=== PATIENT | male | born 1960 | race Caucasian/White ===

== ENCOUNTER 2023-12-19 03:17 | Emergency (ER) | payer OTHER, SELFPAY ==
[2023-12-19 03:20] VITALS: BP 160/116; PULSE 84; RESP 20; TEMP 36.7; O2SAT 97; BMI 31.2
--- NOTE | 2023-12-19 03:22 | CRLHL7_ITS ---
For Patients: As a result of the Century Cures Act, medical imaging exams and procedure reports are released immediately into your electronic medical record. You may view this report before your referring provider. If you have questions, please contact your health care provider. INDICATION: New onset seizures TECHNIQUE: CT Head without i.v. contrast. Coronal and sagittal reformats were obtained. COMPARISON: None FINDINGS: CSF space: Unremarkable for age. Brain: No evidence of mass, acute infarction or hemorrhage is seen. No mass-effect or midline shift is seen. Mild diffuse cortical atrophy is noted. The brain parenchyma is otherwise normal in appearance with preservation of the thompson-white matter junction. Calvarium: Mild mucosal thickening is seen in the right maxillary sinus and ethmoid air cells. The mastoid air cells are clear. The visualized orbits are grossly unremarkable. The calvarium is unremarkable in appearance with no fractures identified. IMPRESSION: 1. No evidence of acute infarction, intracranial hemorrhage, or mass-effect seen. Dictated by Jared Santoro MD @ 12/19/2023 3:44:42 AM Please note that all CT scans at this facility use dose modulation, iterative reconstruction, and/or weight-based dosing when appropriate to reduce radiation dose to as low as reasonably achievable. Dictated by: Jared Santoro MD @ 12/19/2023 03:47:13 (Electronically Signed)
[2023-12-19 03:38] LABS: Appearance Urine Clear (Clear); Bilirubin Urine Negative (Negative); Blood Urine Negative (Negative); Color Urine Yellow (Yellow); Glucose Urine Negative (Negative); Ketones Urine Negative (Negative); Leukocyte Esterase Urine Negative (Negative); Nitrite Urine Negative (Negative); Protein Urine 1+ (Negative); Specific Gravity Urine 1.025 (1.000-1.030); Urobilinogen Urine 0.2 (0.2-1.0)
[2023-12-19 03:47] LABS: Amphetamine Screen Urine Negative (Negative); Barbiturate Screen Urine Negative (Negative); Benzodiazepines Screen Urine Negative (Negative); Cannabinoid Screen Urine Negative (Negative); Cocaine Screen Urine Negative (Negative); Methadone Screen Urine Negative (Negative); Methamphetamines Screen Urine Negative (Negative); Opiate Screen Urine Negative (Negative); Oxycodone Screen Urine Negative (Negative); Phencyclidine Screen Urine Negative (Negative); Tricyclic Antidepressant Urine Negative (Negative)
[2023-12-19 03:47] LABS: Lactate* 1.7 mmol/L (0.5-1.9)
[2023-12-19 03:50] LABS: Basophils Absolute Auto 0.02 K/uL (0.00-0.30); Basophils Percent Auto 0.4 % (0.0-3.0); Eosinophils Percent Auto 2.1 % (0.0-7.0); Hematocrit 43.3 % (37.0-53.0); Hemoglobin* 14.9 gm/dL (13.5-17.5); Immature Granulocytes Abs Auto 0.01 K/uL (0.00-0.30); Immature Granulocytes Pct Auto 0.2 %; Lymphocytes Percent Auto 18.5 % (20-44); Mean Corpuscular HGB Conc 34 gm/dL (32-36); Mean Corpuscular Hemoglobin 30 pg (26-34); Mean Corpuscular Volume 86 fL (80-100); Monocytes Percent Auto 6.9 % (0.0-11.0); Neutrophils Absolute Auto 3.41 K/uL (1.7-7.0); Neutrophils Percent Auto 71.9 % (42.0-72.0); Platelet Count* 230 K/uL (140-440); RDW Coefficient of Variation % 12.8 % (11.5-15.5); Red Blood Count 5.04 m/uL (4.30-5.90); White Blood Count* 4.75 K/uL (4.50-11.00)
[2023-12-19 03:51] LABS: Slide Review Reflex No
--- NOTE | 2023-12-19 03:55 | ED_ITS ---
HPI - General Adult General Chief complaint: Seizure Stated complaint: seizure Time Seen by Provider: 12/19/23 03:22 Source: patient, family and EMS Mode of arrival: EMS History of Present Illness HPI narrative: 63-year-old male presents to the emergency department via [facility]. Patient [facility] I do not have any access to those records. He requested that EMS bring him to our facility, rationale is unclear. He has never been a patient of our facility. He reports that he did not want to be transferred to [place]. His called 911 when she was awoken by him having what sounds like a tonic clonic seizure. He does not recall the event admits that he has some amnesia for most of the night. He denies prior history of seizure. No recent head injury. He does not take an ticoagulants. No recent fever, trauma or injury. He does admit to daily drinking of alcohol, typically 1 beer after work. When I asked him how long it will take him to get through a case of beer, he says about a week and a half. Tells me that he used to drink more. He quit smoking 20 years ago. He does not have a family history of seizures or strokes. He reports he has a history of hypertension, takes a prescription medication, does not remember what it is. Does not have electronic access to that information. Denies recent illness, pertinent travel or other systemic symptoms. He is noting a little bit of bilateral tingling of each bahai but no other neurological changes. He reports that he was seen in an emergency department 5-6 years ago, unclear which 1 certainly was not hours. He reports that he had a spell at work where he felt lightheaded but did not pass out. I do not know what workup was done, he does not know if he was given a diagnosis. Again, no records. No additional information from EMS. His arrives as I complete my exam. He states that his past medical history is only notable for hypertension, denies any other long-term medical problems. He denies any prior surgeries. Family history negative as above. Unknown blood pressure medication is his only home med. Denies allergies. Nonsmoker. Regular alcohol drinker. Denies history of alcohol withdrawal symptoms. Related Data Previous Rx's ?Medication ?Instructions ?Recorded levetiracetam 500 mg tablet 500 mg PO BID #180 tabs 12/19/23 (Keppra) Allergies Allergy/AdvReac Type Severity Reaction Status Date / Time No Known Drug Allergies Allergy Verified 12/19/23 03:23 [facility] Medical History (Updated 12/19/23 @ 04:49 by Stefania Dang MD) Hypertension ?I10 - Essential (primary) hypertension (ICD-10) Exam Const: Vital Signs, click to edit/add: Vital Signs - 24 hr 12/19/23 03:20 Temperature 98.0 F Pulse Rate [Right Pulse Oximeter] 84 Respiratory Rate 20 Blood Pressure [Ri ght Upper Arm] 160/116 H Pulse Oximetry 97 Oxygen Delivery Me thod Room Air Documenting provider has reviewed patient's vital signs: yes Common normals: oriented x3 and alert Other: Cooperative and friendly. Amnesia regarding events of the evening. Oriented to person, place and situation. Can not answer complex questions like reversed phone number, spouse date, etc. HENMT: Common normals: normocephalic, head/scalp atraumatic, hearing grossly normal bilaterally, TM's normal bilaterally and moist oral mucous membranes Head and scalp: normocephalic and atraumatic Face and sinus: normal facial exam Tympanic membrane: TM's normal bilaterally Throat: posterior oropharynx normal Other: Biting to the tip of the tongue, no active bleeding. Eye: Common normals: PERRL, EOMs intact bilaterally and conjunctivae normal General eye: normal appearance of both eyes Conjunctiva: conjunctiva(e) normal Pupil: PERRL Neck & C-Spine: Common normals: full ROM and no lymphadenopathy Chest: Common normals: inspection of chest normal Resp: Common normals: normal respiratory effort and clear to auscultation bilaterally Effort & inspection: able to speak in complete sentences Auscultation: clear to auscultation bilaterally Cardio: Common normals: regular rate, regular rhythm, S1 normal heart sound, S2 normal heart sound and no murmurs Rate: regular rate Rhythm: regular rhythm Heart sounds: S1 normal and S2 normal GI: Common normals: Normal to inspection, nondistended, normoactive bowel sounds present, soft to palpation, non-tender, no hepatosplenomegaly and no masses Palpation: soft and no hepatosplenomegaly Other: Obese. Difficult to feel edges of organs. Extremity: Common normals: normal to inspection, full ROM and normal capillary refill Neuro: Common normals: oriented x3, CN's II-XII intact bilaterally, moves all extremities, no focal motor deficits and no sensory deficits noted Sensorium/orientation: alert Speech: speech normal Motor exam: strength 5/5 throughout, no tremor noted and no movement abnormalities noted Psych: Appearance: grossly normal Attitude: engaged Activity/motor behavior: appropriate eye contact Mood and affect: euthymic mood Insight: fair Judgement: judgment good Skin: Common normals: no rashes or lesions noted General skin exam: no rashes or lesions noted Course Course ED Course: 63-year-old male regular alcohol user with history of hypertension presenting with new onset seizure disorder. History is suspicious for a tonic clonic seizure. Will obtain head CT, basic labs, alcohol level. Seizure precautions. Will plan to give 1 g of Keppra. Await consult and findings. Reevaluation(s) Time of Reevaluation #1: 04:49 Reevaluation #1: Patient observed, no further signs of seizure activity. He is given 1 g of Keppra IV. We discussed that he needs an MRI of his brain. Offered observation admission here in our hospital to facilitate this. We still do not have neurology services and he would need to follow up with his primary care team to coordinate a neurology referral as well. He is preferring to have the MRI and the neurology referral coordinated by his primary care provider. I think this is reasonable since his head CT was normal. He will start on Keppra 500 b.i.d. in the interim, next dose is Monday. Alarm symptoms reviewed. No driving until cleared by Neurology. Written instructions provided. All questions answered. Vital Signs Vital signs: Initial Vital Signs Temperature 98.0 F 12/19/23 03:20 Temperature Source Temporal Artery Scan 12/19/23 03:20 Pulse Rate 84 12/19/23 03:20 Pulse Rhythm Regular 12/19/23 03:20 Pulse Strength 3+ Normal 12/19/23 03:20 Respiratory Rate 20 12/19/23 03:20 Blood Pressure 160/116 H 12/19/23 03:20 Blood Pressure Mean 130 H 12/19/23 03:20 Blood Pressure Position Sitting 12/19/23 03:20 Pulse Oximetry 97 12/19/23 03:20 Oxygen Delivery Method Room Air 12/19/23 03:20 Vital Signs Temperature 98.0 F 12/19/23 03:20 Pulse Rate 84 12/19/23 03:20 Respiratory Rate 20 12/19/23 03:20 Blood Pressure 160/116 H 12/19/23 03:20 Pulse Oximetry 97 12/19/23 03:20 Oxygen Delivery Method Room Air 12/19/23 03:20 Temperature 98.0 F 12/19/23 03:20 Pulse Rate 84 12/19/23 03:20 Respiratory Rate 20 12/19/23 03:20 Blood Pressure 160/116 H 12/19/23 03:20 Pulse Oximetry 97 12/19/23 03:20 Oxygen Delivery Method Room Air 12/19/23 03:20 Medications Administered Medications: Generic Name Dose Route Start Last Admin Trade Name Freq PRN Reason Stop Dose Admin Levetiracetam 1,000 mg/ Sodium 110 mls @ 440 mls/hr 12/19/23 04:04 12/19/23 04:38 Chloride IVPB 12/19/23 04:05 440 mls/hr ONCE ONE Administration Medical Decision Making [facility] Narrative Medical decision making narrative: Differential diagnosis including brain tumor, brain bleed, head trauma, stroke, new onset seizure disorder, metabolic abnormality, sepsis, amongst others. No hypotension. Normal mentation other than some mild amnesia. Tongue biting is suspicious for seizure as was the description of the tonic clonic movements from his prior to EMS arrival. She has arrived and has given further information, spell probably lasted 2-3 minutes total. He was confused afterwards. He did bite his tongue, they do not think that he wet the bed. He does drink alcohol daily, based on his usage, 2-3 per day. No recent injury or trauma. Primary care team is through [facility]. Lab Data Lab results reviewed: Yes I reviewed the patient's lab results Lab results narrative: Mildly elevated AST, otherwise reassuring. Labs: Lab Results 12/19/23 12/19/23 Range/Units 03:26 03:44 WBC 4.75 (4.50-11.00) K/uL RBC 5.04 (4.30-5.90) m/uL Hgb 14.9 (13.5-17.5) gm/dL Hct 43.3 (37.0-53.0) % MCV 86 (80-100) fL MCH 30 (26-34) pg MCHC 34 (32-36) gm/dL RDW Coeff of Aarti 12.8 (11.5-15.5) % Plt Count 230 (140-440) K/uL Neut % (Auto) 71.9 (42.0-72.0) % Lymph % (Auto) 18.5 L (20-44) % [place] % (Auto) 6.9 (0.0-11.0) % Eos % (Auto) 2.1 (0.0-7.0) % Baso % (Auto) 0.4 (0.0-3.0) % Neut # (Auto) 3.41 (1.7-7.0) K/uL Lymph # (Auto) 0.90 (0.90-2.90) K/uL [place] # (Auto) 0.30 (0.00-0.90) K/UL Eos # (Auto) 0.10 (0.00-0.50) K/uL Baso # (Auto) 0.02 (0.00-0.30) K/uL Abs Immat Gran (auto) 0.01 (0.00-0.30) K/uL Imm/Tot Granulo (auto) 0.2 % Sodium 138 (135-149) mmol/L Potassium 3.6 (3.6-5.1) mmol/L Chloride 103 (96-114) mmol/L Carbon Dioxide 26 (20-32) mmol/L Anion Gap 9 (7-15) mEq/L BUN 18 (7-30) mg/dL Creatinine 0.6 (0.5-1.5) mg/dL Estimated Creat Clear 71.25 Estimated GFR 107 ml/min Glucose 134 H (60-115) mg/dL Lactate 1.7 (0.5-1.9) mmol/L Calcium 9.2 (8.4-10.6) mg/dL Total Bilirubin 0.5 (0.1-1.5) mg/dL AST 47 H (12-35) U/L ALT 26 (4-50) U/L Alkaline Phosphatase 48 (40-150) U/L C-Reactive Protein < 0.5 L (0.5-1.0) mg/dL Total Protein 7.4 (6.0-8.3) g/dL Albumin 4.5 (3.3-5.0) g/dL Urine Color Yellow (Yellow) Urine Appearance Clear (Clear) Urine pH 6.0 (5.0-8.5) Ur Specific [place] 1.025 (1.000-1.030) Urine Protein 1+ A (Negative) Urine Glucose (UA) Negative (Negative) Urine Ketones Negative (Negative) Urine Blood Negative (Negative) Urine Nitrite Negative (Negative) Urine Bilirubin Negative (Negative) Urine Urobilinogen 0.2 (0.2-1.0) Ur Leukocyte Esterase Negative (Negative) Urine RBC 0-2 (0-2) Urine WBC 0-2 (0-5) Ur Squamous Epith Cells Few (None-Few) Urine Bacteria Few A (None) Urine Opiates Screen Negative (Negative) Ur Oxycodone Screen Negative (Negative) Urine Methadone Screen Negative (Negative) Ur Barbiturates Screen Negative (Negative) U Tricyclic Antidepress Negative (Negative) Ur Phencyclidine Scrn Negative (Negative) Ur Amphetamines Screen Negative (Negative) U Methamphetamines Scrn Negative (Negative) U Benzodiazepines Scrn Negative (Negative) Urine Cocaine Screen Negative (Negative) U Marijuana (THC) Screen Negative (Negative) Ur Drug Screen Comment See Note Ethyl Alcohol < 0.01 L (0.01-0.03) % Imaging Data CT scan - head: Attestation: I have reviewed the pertinent imaging results. My impression: Other than some degenerative changes, normal head CT. No signs of bleeding, mass or large area of previous infarct. Radiologist's impression: IMPRESSION: 1. No evidence of acute infarction, intracranial hemorrhage, or mass-effect seen. Dictated by Jared Santoro MD @ 12/19/2023 3:44:42 AM ECG Data Attestation: I personally reviewed and interpreted this ECG as follows: Prior ECG tracings: not available for review Interpretation: Sinus rhythm, rate of 85. There is an incomplete right bundle branch block but otherwise normal axis and intervals. No obvious acute ST or T-wave abnormalities. No signs of ischemia. Discharge Plan Discharge Clinical Impression: New onset seizure without head trauma Patient Disposition: Home w/ Parent or Adult Condition: Improved Instructions: New-Onset Seizure in Adults (ED) Additional Instructions: As we discussed, the event that you had tonight seems consistent with a seizure. I do not have access to your old medical records to tell if this was similar to the episode you described in an emergency department a few years ago. Your blood work looks normal other than the fact that your liver tests indicate that you probably drink a little too much alcohol, but nothing severe. Your head CT did not show any signs of tumors, bleeds or other dangerous pathology. They do show some atrophy which is consistent with aging of the brain. As we discussed, seizures in adults tend to happen from aging of the brain, strokes, or drinking too much alcohol. Most of the time, you are at an increased risk of having seizures again. Because of this, we are starting you on an anti seizure medication known as Keppra. He will take 1 pill morning and night. Your dose will likely need to be adjusted. You were given a dose of the medicine IV here in the emergency department to kick start things and reduce your risk of sei zure. No driving until cleared by your primary care provider or neurology. It is common place that you are not allowed to drive for the 1st 30 days after a seizure. We discussed observation admission to our hospital to get an MRI tomorrow and outpatient follow-up with Neurology. The downside to this is your primary care provider and the neurologist that you would follow-up with do not have access to those records. Because of this, you elected to coordinate these things outpatient. Please make an appointment with your primary care doctor right away. You will need a blood level of your Keppra, a referral to a neurologist, and an MRI of your brain. Ideally, these appointments would be within the next couple of weeks. Your homework is to continue monitoring your blood pressure closely at home, continue taking your blood pressure medication, no driving as discussed above, and most importantly, no alcohol. If you have another seizure, you should come back to the emergency department in the meantime. Activity Level: Activity as Tolerated Discharge Diet: Regular Prescriptions: New levetiracetam [Keppra] 500 mg tablet 500 mg PO BID Qty: 180 3RF Follow Up/Referrals: Jose Coats MD [Primary Care Provider] - Stand Alone Forms: [employer] Info Instructions
[2023-12-19 03:59] LABS: Bacteria Urine Few; RBC Urine 0-2 (0-2); Squamous Epithelial Cell Urine Few (None-Few); WBC Urine 0-2 (0-5)
[2023-12-19 04:00] VITALS: O2SAT 99
[2023-12-19 04:02] LABS: Albumin* 4.5 g/dL (3.3-5.0); Chloride* 103 mmol/L (96-114); Sodium* 138 mmol/L (135-149)
[2023-12-19 04:03] LABS: Potassium* 3.6 mmol/L (3.6-5.1)
[2023-12-19 04:04] LABS: Creatinine* 0.6 mg/dL (0.5-1.5); Est. Creatinine Clearance* 71.25; Estimated Glomerular Filt Rate 107 ml/min
[2023-12-19 04:05] LABS: Alanine Aminotransferase* 26 U/L (4-50); Alkaline Phosphatase* 48 U/L (40-150); Anion Gap 9 mEq/L (7-15); Aspartate Amino Transferase* 47 U/L (12-35); Bilirubin Total* 0.5 mg/dL (0.1-1.5); Blood Urea Nitrogen* 18 mg/dL (7-30); Carbon Dioxide* 26 mmol/L (20-32); Total Protein* 7.4 g/dL (6.0-8.3)
[2023-12-19 04:06] LABS: Calcium* 9.2 mg/dL (8.4-10.6); Glucose* 134 mg/dL (60-115)
[2023-12-19 04:11] LABS: C Reactive Protein* < 0.5 mg/dL (0.5-1.0); Ethanol* < 0.01 % (0.01-0.03)
[2023-12-19 05:10] VITALS: BP 132/95; PULSE 80; RESP 20; TEMP 36.7; O2SAT 97
[2023-12-19 05:40] VITALS: BP 132/95; PULSE 80; RESP 20; TEMP 36.7
== END 2023-12-19 05:40 | disposition home or self-care (01) ==
PROVIDERS: Emergency Provider Family Medicine; PCP Orthopaedic Surgery Hand Surgery
DX: R56.9 Unspecified convulsions (principal)
CPT/HCPCS: 36415; 70450; 80053; 80306; 81001; 81003; 82077; 83605; 85025; 86140; 87086; 93005; 94761; 96365; 99284; 99285; J1953